=== PATIENT | female | born 1955 | race African-American/Black ===

== ENCOUNTER 2025-01-11 14:16 | Emergency (ER) | payer BC, MEDICAID ==
[~2025-01-11] VITALS: Ht 167.6 cm; Wt 90.0 kg
[2025-01-11 14:20] VITALS: O2SAT 98
[2025-01-11 14:40] LABS: BASOPHILS % 0.9 % (0.0-2.0); EOSINOPHILS % 4.6 % (0.0-5.0); HEMATOCRIT. 38.9 % (36.0-48.0); HEMOGLOBIN. 12.6 g/dL (12.0-16.0); LYMPHOCYTES % 39.5 % (20.0-50.0); MEAN PLATELET VOLUME 8.9 fl (7.4-10.4); MONOCYTES % 7.7 % (2.0-8.0); NEUTROPHILS % 47.3 % (40.0-76.0); PLATELET 222 x1000/uL (130-400); RED BLOOD CELL COUNT 3.93 mill/uL (4.2-5.4); RED CELL DISTRIBUTION WIDTH 15.2 % (11.6-14.6)
[2025-01-11 14:53] LABS: CREATININE 1.7 mg/dL (0.6-1.0)
[2025-01-11 14:54] LABS: UREA NITROGEN BLOOD 24 mg/dL (9-23)
[2025-01-11 14:55] LABS: ASPARTATE AMINOTRANSFERASE 16 IU/L (<34); TROPONIN I HIGH SENSITIVITY < 4 ng/L (3.0-34)
[2025-01-11 14:56] LABS: BILIRUBIN DIRECT < 0.1 mg/dL (<=3.0); BILIRUBIN TOTAL 0.3 mg/dL (0.1-1.0); PROTEIN TOTAL 6.7 g/dL (6.0-8.3)
[2025-01-11] MEDS: SODIUM CHLORIDE 0.9% 500 ML IV ONE (16:09)
[2025-01-11] MEDS ORDERED: ONDA-239 PO (16:36)
[2025-01-11] MEDS: HYDRALAZINE 20MG/ML VIAL IV ONE (17:11)
[2025-01-11 17:14] VITALS: BP 180/72; PULSE 66; RESP 15; TEMP 36.9; O2SAT 100
== END 2025-01-11 17:15 | disposition home or self-care (01) ==
LOC: ER 14:26 → EDBEDREQSVC 15:48 → EDBEDREQ 15:48 → EDBEDREQTM 15:48 → CANBEDREQ 16:36 → ER 17:15
DX: R11.2 Nausea with vomiting, unspecified (principal); R55 Syncope and collapse; I10 Essential (primary) hypertension; E11.9 Type 2 diabetes mellitus without complications; R06.02 Shortness of breath; J44.89 Other specified chronic obstructive pulmonary disease; Z88.0 Allergy status to penicillin; Z88.2 Allergy status to sulfonamides
CPT/HCPCS: 99285; 96374; 71045; 80076; 80048; 83880; 83735; 85025; 84484; 36415; 93005; J0360; J7030